=== PATIENT | male | born 1995 | race Caucasian/White ===

== ENCOUNTER 2018-08-11 15:08 | Emergency (ER) | payer OTHER ==
--- NOTE | 2018-08-11 15:57 | UC ---
Skin Complaint HPI - HPI Summary HPI Summary: Patient is otherwise healthy 22 y/o male with pruritic rash to right distal calf x 4-5 days. He states he may have been exposed to poison [place]. He states the rash has changed from red blisters to scaly, raised purple lesions. It is painful when he walks. Denies fevers, chills , spreading of the rash. Denies tobacco use. - History of Current Complaint Chief Complaint: UCSkin Time Seen by Provider: 08/11/18 15:41 Stated Complaint: RASH Hx Obtained From: Patient Onset/Duration: Gradual Onset, Lasting Days Skin Exposure Onset/Duration: Days Ago Timing: Constant Onset Severity: Mild Current Severity: Mild Pain Intensity: 4 Location: Discrete - Right calf Character: Swelling, Pruritus, Pain, Raised Aggravating Factor(s): Touch Alleviating Factor(s): Nothing Associated Signs & Symptoms: Negative: Nausea, Vomiting, Fever, Chills Related History: Possible Reaction to: Environmental Exposure - Allergy/Home Medications Allergies/Adverse Reactions: Allergies Allergy/AdvReac Type Severity Reaction Status Date / Time No Known Allergies Allergy Verified 08/11/18 15:34 Home Medications: Home Medications Ibuprofen TAB* [Advil TAB*] 600 mg PO ONCE PRN 08/11/18 [History Confirmed 08/11] PMH/Surg Hx/FS Hx/Imm Hx Previously Healthy: Yes - Surgical History Surgical History: Yes Surgery Procedure, Year, and Place: 2 ACL surgeries on left - Family History Known Family History: Positive: Non-Contributory - Social History Alcohol Use: Weekly Substance Use Type: None Smoking Status (MU): Never Smoked Tobacco Review of Systems All Other Systems Reviewed And Are Negative: Yes Constitutional: Negative: Fever, Chills Skin: Positive: Rash - Right calf Gastrointestinal: Negative: Vomiting, Nausea Physical Exam Triage Information Reviewed: Yes Appearance: Well-Appearing, No Pain Distress Vital Signs: Initial Vital Signs Temp 98.9 F 08/11/18 15:30 Pulse 52 08/11/18 15:30 Resp 16 08/11/18 15:30 BP 126/71 08/11/18 15:30 Pulse Ox 98 08/11/18 15:30 Vital Signs Reviewed: Yes Eye Exam: Normal Eyes: Positive: Conjunctiva Clear ENT Exam: Normal Respiratory: Positive: Lungs clear, Normal breath sounds Cardiovascular: Positive: RRR, No Murmur Musculoskeletal Exam: Normal Musculoskeletal: Positive: Strength Intact, ROM Intact Neurological Exam: Normal Neurological: Positive: Alert Psychological Exam: Normal Skin: Positive: Rashes - There is a raised purple/deep red pruritic rash without drainage with surrounding swelling to the distal right calf. Course/Dx - Course Course Of Treatment: 22 y/o otherwise healthy male with pruritic and painful purple rash to right distal calf, unlike rashes he has had previously. He is discharged with prescription for antibiotic and instructed to apply OTC 1% hydrocortisone for the itching. Rash was dressed with non-stick gauze and FERNANDO bandage. To return here with new or worsening symptoms - Differential Diagnoses - Skin Complaint Differential Diagnoses: Drug Rash, Eczema, Poison Juany, Poison Nerinx, Other - spider bite, allergic process - Diagnoses Provider Diagnosis: Dermatitis Discharge - Sign-Out/Discharge Documenting (check all that apply): Patient Departure All imaging exams completed and their final reports reviewed: No Studies - Discharge Plan Condition: Improved Disposition: HOME Prescriptions: Cephalexin CAP* [Keflex CAP*] 500 mg PO TID #20 cap Hydrocortisone 1% CREAM* 1 applic TOPICAL TID #1 tube Patient Education Materials: Dermatitis (ED) Referrals: Michelle Vu DO [Primary Care Provider] - Additional Instructions: Topical hydrocortisone and oral antibiotic. Return with skin breakdown, fever, redness up the leg, worse or other concerns. Follow-up with your doctor within 2-3 days' time. - Billing Disposition and Condition Condition: IMPROVED Disposition: Home - Attestation Statements Document Initiated by Nate: Yes Documenting Scribe: BAYLEE Encarnacion Provider For Whom Nate is Documenting (Include Credential): Dr. Perez Scribvinita Attestation: Favian Lala PA-S, scribed for Dr. Perez on 08/11/18 at 1658. Scribe Documentation Reviewed: Yes Provider Attestation: The documentation as recorded by the Favian loya PA-S accurately reflects the service I personally performed and the decisions made by Dr. Chris dodd Status of Scribe Document: Viewed
[2018-08-11 18:04] VITALS: BP 126/71
== END 2018-08-11 16:05 | disposition home or self-care (01) ==
LOC: UCEAST 15:08
DX: L30.9 Dermatitis, unspecified (principal)
CPT/HCPCS: 99212; G0463